=== PATIENT | female | born 1980 | race American Indian/Alaskan Native ===

== ENCOUNTER 2019-01-02 21:02 | Emergency (ER) | payer OTHER ==
[2019-01-02 21:24] VITALS: BP 128/87
--- NOTE | 2019-01-02 21:52 | Event Note ---
ED Screening Note Date of service: 01/02/19 Time: 21:47 ED Screening Note: 38 female comes in for chest discomfort left arm numbness and left [place] in lower legs. This initial assessment/diagnostic orders/clinical plan/treatment(s) is/are subject to change based on patients health status, clinical progression and re- assessment by fellow clinical providers in the ED. Further treatment and workup at subsequent clinical providers discretion. Patient/guardian urged not to elope from the ED as their condition may be serious if not clinically assessed and managed. Initial orders include:
[2019-01-02 22:11] LABS: Basophils # (Auto) 0.1 K/mm3 (0.0-0.1); Basophils % (Auto) 0.9 % (0.0-1.8); Eosinophils # (Auto) 0.2 K/mm3 (0.0-0.4); Eosinophils % (Auto) 2.1 % (0.0-4.3); Hematocrit 39.8 % (30.3-42.9); Lymphocytes # (Auto) 2.1 K/mm3 (1.2-5.4); Lymphocytes % (Auto) 29.6 % (13.4-35.0); Mean Corpuscular HGB Conc 33 % (30-34); Mean Corpuscular Volume 84 fl (79-97); Monocytes # (Auto) 0.4 K/mm3 (0.0-0.8); Monocytes % (Auto) 5.6 % (0.0-7.3); Platelet Count 229 K/mm3 (140-440); Red Blood Count 4.71 M/mm3 (3.65-5.03); Red Cell Distribution Width 13.8 % (13.2-15.2)
--- NOTE | 2019-01-02 22:26 | XRay Report ---
PROCEDURE: XR CHEST ROUTINE 2V TECHNIQUE: PA and lateral chest radiographs were obtained. HISTORY: chest pain COMPARISONS: None. FINDINGS: Heart: Normal. Mediastinum/Vessels: Normal. Lungs/Pleural space: Normal. Bony thorax: No acute osseous abnormality. IMPRESSION: Normal examination. This document is electronically signed by Wally Velasco MD., January 02 2019 10:24:53 PM ET
[2019-01-02 22:47] LABS: Alanine Aminotransferase 10 units/L (7-56); BUN/Creatinine Ratio 22; Blood Urea Nitrogen 13 mg/dL (7-17); Calcium 10.1 mg/dL (8.4-10.2); Hemolysis Index 47
[2019-01-03] MEDS ORDERED: IBUPROFEN PO ONE (00:36)
[2019-01-03] MEDS ORDERED: PROVENTIL IH ONE (00:36)
[2019-01-03 01:35] LABS: INR 1.06 (0.87-1.13)
[2019-01-03 01:43] LABS: Partial Thromboplastin Time 30.9 Sec. (24.2-36.6)
--- NOTE | 2019-01-03 02:09 | Emergency Department Report ---
ED Chest Pain HPI - General Chief Complaint: Chest Pain Stated Complaint: LT LEG/ARM PAIN CX PAIN LIGHT HEADED Time Seen by Provider: 01/03/19 00:30 Source: patient Mode of arrival: Ambulatory Limitations: No Limitations - History of Present Illness Initial Comments: pt is a 38 y/o AAF who comes in for chest discomfort that radiates to left arm with numbness and tingling , cp is exacerbated by movement and deep breathing, symptoms are relieved nothing, there is associated leg pain bilat and mild swelling MD Complaint: chest pain Onset/Timin -: days(s) Onset: during rest Pain Location: substernal Pain Radiation: LUE Severity: moderate Severity scale (0 -10): 6 Quality: aching, squeezing Consistency: constant Improves With: nothing Worsens With: exertion, movement re: nausea, vomting Treatments Prior to Arrival: none - Related Data On Oral Contraceptives: No Previous Rx's Medication Instructions Recorded Last Taken Type ALBUTEROL Inhaler (OR & NICU) 1 puff IH Q4H PRN #1 inha 01/03/19 Unknown Rx [ProAir HFA Inhaler] Naproxen [Naprosyn TAB] 500 mg PO BID PRN #30 tablet 01/03/19 Unknown Rx Allergies Allergy/AdvReac Type Severity Reaction Status Date / Time No Known Allergies Allergy Verified 01/02/19 21:17 Heart Score - HEART Score History: Slightly suspicious EKG: Normal Age: < 45 Risk factors: No known risk factors Troponin: < normal limit HEART Score: 0 ED Review of Systems ROS: Stated complaint: LT LEG/ARM PAIN CX PAIN LIGHT HEADED Other details as noted in HPI Constitutional: denies: chills, fever Eyes: denies: eye pain, eye discharge, vision change ENT: denies: ear pain, throat pain Respiratory: denies: cough, shortness of breath, wheezing Cardiovascular: chest pain Endocrine: no symptoms reported Gastrointestinal: denies: abdominal pain, nausea, vomiting, diarrhea Genitourinary: denies: urgency, dysuria, discharge Musculoskeletal: denies: back pain, joint swelling, arthralgia Skin: denies: rash, lesions Neurological: denies: headache, weakness, paresthesias Psychiatric: denies: anxiety, depression Hematological/Lymphatic: denies: easy bleeding, easy bruising ED Past Medical Hx - Past Medical History Previous Medical History?: Yes Additional medical history: high chol - Surgical History Past Surgical History?: Yes Additional Surgical History: hysterectomy - Social History Smoking Status: Never Smoker Substance Use Type: None - Medications Home Medications: Home Medications Medication Instructions Recorded Confirmed Last Taken Type ALBUTEROL Inhaler (OR & NICU) 1 puff IH Q4H PRN #1 inha 01/03/19 Unknown Rx [ProAir HFA Inhaler] Naproxen [Naprosyn TAB] 500 mg PO BID PRN #30 tablet 01/03/19 Unknown Rx ED Physical Exam - General Limitations: No Limitations General appearance: alert, in no apparent distress - Head Head exam: Present: atraumatic, normocephalic - Eye Eye exam: Present: normal appearance, PERRL, EOMI Pupils: Present: normal accommodation - ENT ENT exam: Present: mucous membranes moist - Neck Neck exam: Present: normal inspection, full ROM, lymphadenopathy - Respiratory Respiratory exam: Present: normal lung sounds bilaterally, chest wall tenderness (left substernal pain to palpation and inspiration ). Absent: respiratory distress, wheezes, stridor - Cardiovascular Cardiovascular Exam: Present: regular rate, normal rhythm, normal heart sounds. Absent: systolic murmur, diastolic murmur, rubs, gallop - GI/Abdominal GI/Abdominal exam: Present: soft, normal bowel sounds. Absent: distended, tenderness, guarding, rebound, rigid, bruit, hernia - Rectal Rectal exam: Present: deferred - Extremities Exam Extremities exam: Present: normal inspection, full ROM, normal capillary refill. Absent: tenderness, pedal edema, joint swelling, calf tenderness - Back Exam Back exam: Present: normal inspection, full ROM, tenderness. Absent: CVA tenderness (R), CVA tenderness (L), muscle spasm, paraspinal tenderness, vertebral tenderness, rash noted - Neurological Exam Neurological exam: Present: alert, oriented X3, CN II-XII intact, normal gait, reflexes normal. Absent: motor sensory deficit - Psychiatric Psychiatric exam: Present: normal affect, normal mood - Skin Skin exam: Present: warm, dry, intact, normal color. Absent: rash ED Course Vital Signs 01/02/19 21:23 Temperature 98.5 F Pulse Rate 68 Respiratory 16 Rate Blood Pressure 128/87 O2 Sat by Pulse 98 Oximetry - Reevaluation(s) Reevaluation #1: PERC score PE: 0, WELLS PE/ DVT :0 01/03/19 02:18 ED Medical Decision Making - Lab Data Result diagrams: 01/02/19 21:59 01/02/19 21:59 - EKG Data EKG shows normal: sinus rhythm, axis, intervals, QRS complexes, ST-T waves - EKG Data When compared to previous EKG there are: previous EKG unavailable Interpretation: normal EKG (EKG Interp by ed attending no ST Elevated DC ) - Radiology Data Radiology results: report reviewed, image reviewed Ordering Physician: SLADE HAEYS NP Date of Service: 01/03/19 Procedure(s): CT angio chest Accession Number(s): [id number] cc: SLADE HAYES NP PROCEDURE: CT ANGIO CHEST TECHNIQUE: Computerized tomographic angiography of the chest was performed after the IV injection of iodinated nonionic contrast including image processing. The image data was postprocessed using 2-dimensional multiplanar reformatted (MPR) and 3-dimensional (MIP and/or volume rendered) techniques. Automated exposure control, adjustment of mA and/or kV according to patient size, or iterative reconstruction dose optimization techniques were utilized. CT DOSE LENGTH PRODUCT: mGycm HISTORY: sob r/o PE COMPARISONS: Chest x-ray 01/02/2019 . FINDINGS: Heart and pericardium: Normal. Thoracic aorta: Normal. Pulmonary vasculature: Normal. Lymph nodes: No enlarged thoracic lymph nodes. Lungs: Normal. Pleural space: No effusion, thickening, or pneumothorax. Musculoskeletal structures: No significant abnormality. Upper abdominal structures: In the liver there is a 2.6 cm low-attenuation lesion in the right hepatic lobe with slight peripheral enhancement. This may represent an incidental hemangioma. The adrenal glands appear normal.. IMPRESSION: No evidence of pulmonary embolus, aortic dissection, or vascular congestion. No acute process in the chest. 2.6 cm low-attenuation partly enhancing lesion in the right hepatic lobe. This may represent an incidental hemangioma. Sonography of the liver is recommended for follow-up exam.. This document is electronically signed by Marium Blanchard MD., January 03 2019 03:48:38 AM ET Transcribed By: FLAQUITO Dictated By: MARIUM BLANCHARD MD Electronically Authenticated By: MARIUM BLANCHARD MD Signed Date/Time: 01/03/19350 DD/ 030 TD/TT: 01/03/19 0321 Interestingly Ordering Physician: CORIN GERBER Date of Service: 01/02/19 Procedure(s): XR chest routine 2V Accession Number(s): [id number] cc: CORIN GERBER Fluoro Time In Minutes: PROCEDURE: XR CHEST ROUTINE 2V TECHNIQUE: PA and lateral chest radiographs were obtained. HISTORY: chest pain COMPARISONS: None. FINDINGS: Heart: Normal. Mediastinum/Vessels: Normal. Lungs/Pleural space: Normal. Bony thorax: No acute osseous abnormality. IMPRESSION: Normal examination. This document is electronically signed by Shawanda Velasco MD., January 02 2019 10:24:53 PM ET Transcribed By: [facility] [place] Dictated By: SHAWANDA VELASCO Electronically Authenticated By: SHAWANDA VELASCO Signed Date/Time: 01/02/192225 DD/ 08 TD/TT: 01/02/192208 - Medical Decision Making CTA chest is negative no PE, CXR : normal no infiltrates no opacities, breathing is improved, there is a 2.5 mm hepatic cyst plan: naproxen po bid, prn pain , albturol 2 puffs prn Sob, follow with pcp in 2-3 return to ed if symptoms worsen. Critical care attestation.: If time is entered above; I have spent that time in minutes in the direct care of this critically ill patient, excluding procedure time. ED Disposition Clinical Impression: Chest wall pain Chest pain Qualifiers: Chest pain type: chest pain on breathing Qualified Code(s): R07.1 - Chest pain on breathing; R07.81 - Pleurodynia Disposition: - TO HOME OR SELFCARE Is pt being admited?: No Does the pt Need Aspirin: No Condition: Stable Instructions: Chest Pain (ED), Costochondritis (ED) Prescriptions: Naproxen [Naprosyn TAB] 500 mg PO BID PRN #30 tablet PRN Reason: Pain , Severe (7-10) ALBUTEROL Inhaler (OR & NICU) [ProAir HFA Inhaler] 1 puff IH Q4H PRN #1 inha PRN Reason: Shortness Of Breath wheezing. Referrals: COTY LANDEROS MD [Primary Care Provider] - 3-5 Days Forms: Work/School Release Form(ED) Time of Disposition: 05:01
--- NOTE | 2019-01-03 03:51 | Cat Scan Report ---
PROCEDURE: CT ANGIO CHEST TECHNIQUE: Computerized tomographic angiography of the chest was performed after the IV injection of iodinated nonionic contrast including image processing. The image data was postprocessed using 2-di mensional multiplanar reformatted (MPR) and 3-dimensional (MIP and/or volume rendered) techniques. Au tomated exposure control, adjustment of mA and/or kV according to patient size, or iterative reconstr uction dose optimization techniques were utilized. CT DOSE LENGTH PRODUCT: mGycm HISTORY: sob r/o PE COMPARISONS: Chest x-ray 01/02/2019 . FINDINGS: Heart and pericardium: Normal. Thoracic aorta: Normal. Pulmonary vasculature: Normal. Lymph nodes: No enlarged thoracic lymph nodes. Lungs: Normal. Pleural space: No effusion, thickening, or pneumothorax. Musculoskeletal structures: No significant abnormality. Upper abdominal structures: In the liver there is a 2.6 cm low-attenuation lesion in the right hepat ic lobe with slight peripheral enhancement. This may represent an incidental hemangioma. The adrenal glands appear normal.. IMPRESSION: No evidence of pulmonary embolus, aortic dissection, or vascular congestion. No acute process in the chest. 2.6 cm low-attenuation partly enhancing lesion in the right hepatic lobe. This may represent an incid ental hemangioma. Sonography of the liver is recommended for follow-up exam.. This document is electronically signed by Zaid Blanchard MD., January 03 2019 03:48:38 AM ET
== END 2019-01-03 05:10 | disposition home or self-care (01) ==
LOC: ED 21:02
DX: R07.2 Precordial pain (principal); E78.00 Pure hypercholesterolemia, unspecified; Z90.710 Acquired absence of both cervix and uterus; R06.00 Dyspnea, unspecified
CPT/HCPCS: 36415; 71046; 71275; 80053; 84484; 85025; 85379; 85610; 85730; 93005; 93010; 94640; 99285; Q9967

== ENCOUNTER 2019-01-09 09:01 | Emergency (ER) | payer SELFPAY ==
[2019-01-09 09:09] VITALS: BP 134/95
--- NOTE | 2019-01-09 10:52 | Vascular Lab Report ---
PROCEDURE: VL VENOUS DUPLEX LE LT TECHNIQUE: Grayscale, color flow and spectral waveform images were obtained of left lower extremity. HISTORY: left calf pain with swelling COMPARISON: None FINDINGS: There is no deep venous thrombosis seen in the left lower extremity. Flow is demonstrated by color flow and spectral waveform imaging. There is appropriate wall compression and augmentation. There is also no evidence of superficial venous thrombus. IMPRESSION: There is no evidence for DVT in left lower extremity. This document is electronically signed by Kacie Santoyo MD., January 09 2019 10:50:18 AM ET
--- NOTE | 2019-01-09 11:12 | Emergency Department Report ---
HPI - General Chief Complaint: Extremity Problem,Nontraumatic Time Seen by Provider: 01/09/19 10:19 - HPI HPI: This is a 28-year-old female presents ED complaining of left lower leg and calf pain that started yesterday. Patient states that she was in a car for about 8 hours [address] down to [place] She states that she hasn't had her elevated d-dimer a week ago and at was ruled out for PE. Patient states she was concerned and wanted to have her calf evaluated to be redone for DVT. She denies fevers/chills/chest pain/shortness of breath/cough/traumatic injuries. ED Past Medical Hx - Past Medical History Previous Medical History?: No Additional medical history: high chol - Surgical History Past Surgical History?: Yes Additional Surgical History: hysterectomy - Social History Smoking Status: Never Smoker Substance Use Type: None - Medications Home Medications: Home Medications Medication Instructions Recorded Confirmed Last Taken Type ALBUTEROL Inhaler (OR & NICU) 1 puff IH Q4H PRN #1 inha 01/03/19 Unknown Rx [ProAir HFA Inhaler] Naproxen [Naprosyn TAB] 500 mg PO BID PRN #30 tablet 01/09/19 Unknown Rx ED Review of Systems ROS: Stated complaint: LEG SWOLLEN Other details as noted in HPI Physical Exam - Physical Exam Vital Signs: Vital Signs 01/09/19 01/09/19 09:08 09:11 Temperature 97.7 F 97.7 F Pulse Rate 73 73 Respiratory 18 16 Rate Blood Pressure 134/95 Blood Pressure 134/95 [Right] O2 Sat by Pulse 97 97 Oximetry Physical Exam: GENERAL: Alert and oriented x3, no apparent distress, Normal Gait, atraumatic. HEAD: Head is normocephalic and a-traumatic. EXTREMITIES/MUSCULOSKELETAL: No cyanosis, clubbing, rash, lesions or edema. Full ROM bilaterally. LE Pulses 2+ bilaterally. LE 5+ strength bilaterally, Homans sign negative, calf nontender to palpation NEUROLOGIC: The patient is cooperative with no focal neurologic deficits. SKIN: Warm and dry, No lesions, No ulceration or induration present. ED Course Vital Signs 01/09/19 01/09/19 09:08 09:11 Temperature 97.7 F 97.7 F Pulse Rate 73 73 Respiratory 18 16 Rate Blood Pressure 134/95 Blood Pressure 134/95 [Right] O2 Sat by Pulse 97 97 Oximetry ED Medical Decision Making - Radiology Data Radiology results: report reviewed, image reviewed HISTORY: left calf pain with swelling COMPARISON: None FINDINGS: There is no deep venous thrombosis seen in the left lower extremity. Flow is demonstrated by color flow and spectral waveform imaging. There is appropriate wall compression and augmentation. There is also no evidence of superficial venous thrombus. IMPRESSION: There is no evidence for DVT in left lower extremity. This document is electronically signed by Kacie Valentine MD., January 09 2019 10:50:18 AM ET Transcribed By: ZACH Dictated By: KACIE VALENTINE MD Electronically Authenticated By: KACIE VALENTINE MD Signed Date/Time: 01/09/19 1052 - Medical Decision Making 38-year-old female presents with lower left leg pain Ultrasound Doppler shows no signs of DVT. Discussed the patient to follow up with primary care physician. Discussed naproxen as needed for muscular pain of the leg. Discussed to avoid sitting down for a long period of time Discussed the patient endorses symptoms to return to ED. Critical care attestation.: If time is entered above; I have spent that time in minutes in the direct care of this critically ill patient, excluding procedure time. ED Disposition Clinical Impression: Myalgia, Musculoskeletal leg pain Disposition: DC-01 TO HOME OR SELFCARE Is pt being admited?: No Does the pt Need Aspirin: No Condition: Stable Instructions: Musculoskeletal Pain (ED) Additional Instructions: Make sure to follow up with the primary care physician as discussed. Take all your medications as you've been prescribed. If you have any worsening symptoms or develop new symptoms please return to ED immediately. Prescriptions: Naproxen [Naprosyn TAB] 500 mg PO BID PRN #30 tablet PRN Reason: Pain , Severe (7-10) Referrals: COTY LANDEROS MD [Primary Care Provider] - 3-5 Days Forms: Accompanied Note, Work/School Release Form(ED) Time of Disposition: 11:51
== END 2019-01-09 12:07 | disposition home or self-care (01) ==
LOC: ED 09:01
DX: M79.605 Pain in left leg (principal)